=== PATIENT | male | born 1995 | race Caucasian/White ===

== ENCOUNTER 2017-09-03 14:22 | Emergency (ER) | payer OTHER ==
[2017-09-03] MEDS: ONDANSETRON 4MG/2ML VIAL (J2405) IV ×2 (15:13)
[2017-09-03] MEDS: NS 1,000 ML IV ×4 (15:14→15:15)
[2017-09-03 15:42] LABS: ANION GAP 14 MEQ/L (8-16); BLOOD UREA NITROGEN 26 MG/DL (7-18); CALCIUM LEVEL 8.6 MG/DL (8.5-10.1); CARBON DIOXIDE LEVEL 21 MEQ/L (21-32); CHLORIDE LEVEL 107 MEQ/L (98-107); CREATININE FOR GFR 1.21 MG/DL (0.70-1.30); GLOMERULAR FILTRATION RATE > 60.0 (>60); GLUCOSE, FASTING 90 MG/DL (70-105); POTASSIUM SERUM 3.8 MEQ/L (3.5-5.1); SODIUM LEVEL 142 MEQ/L (136-145)
== END 2017-09-03 17:40 | disposition home or self-care (01) ==
LOC: M ED 14:22
DX: K52.9 Noninfective gastroenteritis and colitis, unspecified (principal); E86.0 Dehydration
CPT/HCPCS: J2405

== ENCOUNTER 2019-04-09 18:43 | Emergency (ER) | payer OTHER ==
[~2019-04-09] VITALS: Ht 167.6 cm; Wt 78.2 kg
[2019-04-09 18:43] VITALS: BP 132/62
[~2019-04-09 18:43] MED LIST: ZOFR4TAB14 PO
[2019-04-09] MEDS ORDERED: IBUP-1022 PO (18:49)
== END 2019-04-09 21:32 | disposition left against medical advice (07) ==
LOC: M ED 18:43
DX: Z53.21 Procedure and treatment not carried out due to patient leaving prior to being seen by health care provider (principal)